=== PATIENT | female | born 1940 | race Caucasian/White ===

== ENCOUNTER → 2018-10-01 15:23 | Outpatient (CLI) | payer BC ==
[2012-12-05 17:34] VITALS: BMI 32.2
[~2018-10-01 15:23] MED LIST: B-12 DOTS500 MCG PO; BETAPACE 80 MG80 MG PO; COUMADIN5 MG PO; COZAAR25 MG PO; FLORAJEN3 CAPS460 MG PO; HYDROCHLOROTH12.5 M1 PO; OMNICEF300 MG PO; PLAVIX75 MG PO; PRILOSEC20 MG PO; VITAMIN D2000 UNIT PO
[2018-10-04 16:09] LABS: ALDOSTERONE - 24HR 1.93 ug/24 hr (0.00-19.00); ALDOSTERONE - UR 7.72 ug/L (Not Estab.)
[2018-10-04 17:08] LABS: METAN - URINE 193 ug/L (Undefined); METAN - URINE 24HR 48 ug/24 hr (45-290)
[2018-10-06 07:32] VITALS: BMI 31.8
[2018-10-06 12:07] LABS: VMA - URINE 14.4 mg/L (Undefined)
[2018-10-06 18:06] LABS: CORTISOL FREE - 24HR 4 ug/24 hr (6-42); CORTISOL FREE - UR 17 ug/L (Undefined)
== END | disposition home or self-care (01) ==
LOC: D.LAB 15:23
PROVIDERS: ATTEND Surgery
DX: E27.8 Other specified disorders of adrenal gland (principal)

== ENCOUNTER 2018-10-04 16:39 | Inpatient (IN) | payer MEDICARE, BC ==
[~2018-10-04 16:39] MED LIST changes: -COZAAR25 MG PO; -FLORAJEN3 CAPS460 MG PO; -HYDROCHLOROTH12.5 M1 PO; -OMNICEF300 MG PO; -PLAVIX75 MG PO
[2018-10-04] MEDS ORDERED: PLAVIX75 MG PO (16:57)
[2018-10-04] MEDS ORDERED: HYDROCHLOROTH12.5 M1 PO (16:57)
[2018-10-04] MEDS ORDERED: COZAAR25 MG PO (16:58)
[2018-10-04 17:31] LABS: BASOPHILS 0.2 % (0-2); EOSINOPHILS 0.1 % (0-7); HEMATOCRIT 40.7 % (36.0-48.0); HEMOGLOBIN 14.3 g/dL (12-16); IMMATURE GRANULOCYTES 0.3 % (0-5); LYMPHOCYTES 6.8 % (15-50); MCH 30.4 pg (26.0-34.0); MCHC 35.1 g/dL (31.0-37.0); MCV 86.6 fL (80.0-100.0); MONOCYTES 2.5 % (2-11); NEUTROPHILS 90.1 % (40-80); PLATELET COUNT 230 10x3/uL (130-400); RDW 13.8 % (11.5-14.5); WBC 17.4 10x3/uL (4.8-10.8)
[2018-10-04 17:53] LABS: ALBUMIN 3.7 g/dL (3.4-5.0); ALKALINE PHOSPHATASE 110 U/L (46-116); ALT (SGPT) 21 U/L (10-68); BILIRUBIN - TOTAL 0.57 mg/dL (0.2-1.3); CALC OSMOLALITY 284 mosm/kg (275-300); CALCIUM 9.6 mg/dL (8.5-10.1); CARBON DIOXIDE 22.2 mmol/L (21.0-32.0); CHLORIDE - SERUM 103 mmol/L (98-107); CREATININE - SERUM 1.4 mg/dL (0.6-1.3); POTASSIUM - SERUM 3.5 mmol/L (3.5-5.1); PROTEIN - SERUM 7.6 g/dL (6.4-8.2); SODIUM 140 mmol/L (136-145); UREA NITROGEN 20 mg/dL (7-18); eGFR NON AFRICAN AMERICAN 38 mL/min (90-120)
[2018-10-04 17:54] LABS: AMYLASE - SERUM 122 U/L (25-115); LIPASE 217 U/L (73-393); TROPONIN-I < 0.017 ng/mL (0.000-0.060)
[2018-10-04 17:56] LABS: GLUCOSE 161 mg/dL (74-106)
[2018-10-04 18:00] VITALS: BP 150/68
--- NOTE | 2018-10-04 18:00 | NUR ---
BLADDER SCAN PERFORMED= 40ML DR CENTENO NOTIFIED
[2018-10-04 18:05] LABS: APPEARANCE CLEAR (CLEAR); BILIRUBIN NEGATIVE (NEGATIVE); COLOR YELLOW (YELLOW); GLUCOSE NEGATIVE (NEGATIVE); KETONE MODERATE mg/dL (NEGATIVE); NITRITE NEGATIVE (NEGATIVE); PROTEIN NEGATIVE (NEGATIVE); SPECIFIC GRAVITY 1.025 (1.005-1.020); UROBILINOGEN NORMAL (NORMAL)
--- NOTE | 2018-10-04 18:05 | NUR ---
PT CONT TO C/O ABD PAIN. DENIES PAIN MEDS "I DON'T LIKE TO TAKE PAIN MEDS"
[2018-10-04 18:08] LABS: BACTERIA FEW /hpf (NONE SEEN); EPITHELIAL CELLS 0-5 /hpf (0-5); RED CELLS - URINE 0-5 /hpf (0-5)
--- NOTE | 2018-10-04 18:23 | NUR ---
TO CT VIA STRETCHER WITH MEDICAL BILLING AND CODING INSTRUCTOR
--- NOTE | 2018-10-04 19:02 | NUR ---
PT AMBULATED TO RESTROOM INDEPENDENTLY.
--- NOTE | 2018-10-04 19:06 | NUR ---
BS REPORT TO CANDACE BY SBAR FORMAT
[2018-10-04 20:00] VITALS: BP 126/77
--- NOTE | 2018-10-04 20:45 | NUR ---
PT ARRIVED ON UNIT VIA WHEELCHAIR ESCORTED BY ER STAFF. ORIENTED TO ROOM AND CALL LIGHT. STARTED IV FLUIDS PER ORDER.
[2018-10-04 22:44] VITALS: BP 160/64; BMI 31.8
--- NOTE | 2018-10-04 23:15 | NUR ---
ADMISSION ASSESSMENT AND HISTORY COMPLETE.
[2018-10-05] VITALS: BP 160/64
[2018-10-05 04:00] VITALS: BP 114/46
--- NOTE | 2018-10-05 07:47 | NUR ---
PT ALERT X 4. BREATH SOUNDS CLEAR BILAT. IV TO LEFT AC, PATENT, DRESSING CDI. PT REPORTING NO PAIN AT THIS TIME. BOWEL SOUNDS HYPOACTIVE TO ALL GARCIA. BED LOW, CALL LIGHT IN REACH, NO OTHER NEEDS AT THIS TIME.
[2018-10-05 07:51] LABS: BASOPHILS 0.2 % (0-2); EOSINOPHILS 2.1 % (0-7); HEMOGLOBIN 12.7 g/dL (12-16); IMMATURE GRANULOCYTES 0.2 % (0-5); LYMPHOCYTES 19.3 % (15-50); MCH 29.9 pg (26.0-34.0); MCHC 34.3 g/dL (31.0-37.0); MCV 87.1 fL (80.0-100.0); MEAN PLATELET VOLUME 8.9 fL (7.4-10.4); MONOCYTES 10.4 % (2-11); NEUTROPHILS 67.8 % (40-80); PLATELET COUNT 215 10x3/uL (130-400); RBC 4.25 10x6/uL (4.00-5.40); RDW 14.1 % (11.5-14.5); WBC 13.1 10x3/uL (4.8-10.8)
[2018-10-05 08:14] LABS: ANION GAP 13.5 mmol/L (8-16); CALCIUM 8.5 mg/dL (8.5-10.1); CARBON DIOXIDE 24.8 mmol/L (21.0-32.0); CREATININE - SERUM 1.3 mg/dL (0.6-1.3); MAGNESIUM - SERUM 1.9 mg/dL (1.8-2.4); PHOSPHOROUS 2.9 mg/dL (2.5-4.9); POTASSIUM - SERUM 3.3 mmol/L (3.5-5.1)
[2018-10-05 08:43] VITALS: BP 110/43
[2018-10-05 13:10] VITALS: BMI 31.8
[2018-10-05] MEDS ORDERED: FLORAJEN3 CAPS460 MG PO (13:57)
[2018-10-05] MEDS ORDERED: OMNICEF300 MG PO (13:57)
--- NOTE | 2018-10-05 15:14 | NUR ---
DISCHARGE PAPERWORK SIGNED, ALL QUESTIONS ANSWERED. IV TO LEFT AC DC'D, TIP INTACT. ESCORTED OUT BY WHEELCHAIR.
[2018-10-06 07:32] VITALS: BMI 31.8
== END 2018-10-05 15:16 | disposition home or self-care (01) | DRG 690 ==
LOC: D.ER 16:39 → D.MS 19:23
PROVIDERS: Family Medicine; ADMIT Family Medicine; ATTEND Family Medicine
DX: N39.0 Urinary tract infection, site not specified (principal); N17.9 Acute kidney failure, unspecified; N20.0 Calculus of kidney; E11.65 Type 2 diabetes mellitus with hyperglycemia; I10 Essential (primary) hypertension

== ENCOUNTER → 2018-12-18 19:38 | Outpatient (CLI) | payer MEDICARE, BC ==
[2018-10-06 07:32] VITALS: BMI 31.8
[~2018-12-18 19:38] MED LIST changes: +COZAAR25 MG PO; +FLORAJEN3 CAPS460 MG PO; +HYDROCHLOROTH12.5 M1 PO; +OMNICEF300 MG PO; +PLAVIX75 MG PO
== END | disposition home or self-care (01) ==
LOC: D.LABREF 19:38
PROVIDERS: ATTEND Urology
DX: Z00.01 Encounter for general adult medical examination with abnormal findings (principal)

== ENCOUNTER → 2018-12-24 14:35 | Outpatient (CLI) | payer MEDICARE, BC ==
[2018-10-06 07:32] VITALS: BMI 31.8
== END | disposition home or self-care (01) ==
LOC: D.LABREF 14:35
PROVIDERS: ATTEND Urology
DX: N39.0 Urinary tract infection, site not specified (principal)

== ENCOUNTER → 2019-01-15 19:20 | Outpatient (CLI) | payer BC ==
[2018-10-06 07:32] VITALS: BMI 31.8
== END | disposition home or self-care (01) ==
LOC: D.LABREF 19:20
PROVIDERS: ATTEND Urology
DX: N39.0 Urinary tract infection, site not specified (principal)

== ENCOUNTER → 2019-01-24 07:36 | Outpatient (CLI) | payer BC ==
[2018-10-06 07:32] VITALS: BMI 31.8
== END | disposition home or self-care (01) ==
LOC: D.CT 01-23 08:30
PROVIDERS: ATTEND Urology
DX: R31.21 Asymptomatic microscopic hematuria (principal)

== ENCOUNTER 2020-07-21 13:19 | Emergency (ER) | payer BC ==
[~2020-07-21] VITALS: Ht 167.6 cm; Wt 82.7 kg
[2020-07-21 13:46] VITALS: BP 140/53; Ht 167.6 cm; Wt 82.7 kg
== END 2020-07-21 14:15 | disposition home or self-care (01) ==
LOC: D.ER 13:19
DX: R04.0 Epistaxis (principal); J30.2 Other seasonal allergic rhinitis; E11.9 Type 2 diabetes mellitus without complications; I10 Essential (primary) hypertension